=== PATIENT | female | born 1990 | race Caucasian/White ===

== ENCOUNTER → 2019-03-26 | Outpatient (CLI) | payer OTHER ==
--- NOTE | 2019-03-27 07:41 | XCELERA REPORT ---
[address] [address] Lower Extremity Venous Evaluation Procedure: A unilateral, right sided duplex scan of the lower extremity veins was performed. The evaluation included responses to compression and other maneuvers with patient in the supine and standing positions to assess venous insufficiency.Reason For Study: VARICOSE VEIN OF RIGHT LOWER EXT WITH PAIN Right Sided Venous Evaluation Deep venous system evaluation shows patent veins with no obstruction and significant reflux identified, only in the Common Femoral vein, 1.3 seconds. Saphena Femoral junction: no reflux. Femoral vein reflux: no reflux. Greater Saphenous vein, Proximal thigh: reflux: no reflux. Greater Saphenous vein, Mid thigh: reflux: 4.6 second reflux. 4 mm diameter.. Greater Saphenous vein, Distal thigh: reflux: 4.6 second reflux. 5 mm diameter. Greater Saphenous vein, Proximal below knee: reflux: 2.1 second reflux. 3.6 mm diameter. No significant Perforators identified. Interpretation Summary No duplex evidence of DVT or obstruction in the right lower extremity nor in the right Common Femoral vein. Limited deep and superficial reflux as noted. Name: CELINE TAPIA Age: 29 yrs Gender: Female : 1990 Patient Status: Outpatient Patient Location: Study Date: 03/26/2019 01:06 PM Ordering Physician: KAY PRATT Performed By: Po Bravo : KAY PRATT > Gee Claros
== END ==
LOC: SP 12:43
PROVIDERS: ATTEND Physician Assistant
DX: I83.811 Varicose veins of right lower extremity with pain (principal)
CPT/HCPCS: 93970